=== PATIENT | female | born 1995 | race African-American/Black ===

== ENCOUNTER 2017-12-07 23:40 | Emergency (ER) | payer SELFPAY ==
[~2017-12-07] VITALS: Ht 170.2 cm; Wt 85.0 kg
[2017-12-07 23:49] VITALS: BP 128/74; PULSE 101; RESP 15; TEMP 97.9; O2SAT 98
--- NOTE | 2017-12-08 00:26 | PD ---
HPI Chief Complaint: Sickle Cell Time Seen by Provider: 00:09 Travel History International Travel<30 days: No Contact w/Intl Traveler<30days: No Traveled to known affect area: No History of Present Illness HPI The patient is a 22 year old female who presents to the [facility] emergency department with a history of left leg pain that began earlier this evening. She reports that she took an oxycodone for the pain approximately an hour ago. The patient reports that the pain is related to his sickle cell pain crisis. She reports that she has had a similar pain to this in the past. She reports that the pain is a 10 out of 10 in severity. She reports that her last sickle cell pain crisis was in July 2017. She reports that it usually occurs when she gets cold. The patient reports that she is visiting from [place] and it is currently colder here than in [place]. She denies having any swelling of her legs. She denies having any prior history of DVT or PE. On review of systems otherwise, she denies having any recent fevers, cough, congestion, neck pain, chest pain, shortness of breath, abdominal pain, vomiting , diarrhea, urinary symptoms, or neurologic symptoms. LMP: 2 weeks ago. PFSH Past Medical History Narrative Medical The patient's past medical history is significant for having sickle cell anemia. Sickle Cell Disease: Yes Tetanus Vaccination: Unknown Influenza Vaccination: No ?: Unknown Past Surgical History Narrative Surgical The patient denies any past surgical history. Surgical History: No Previous Surgery Social History Alcohol Use: Yes (OCCASIONALLY) Tobacco Use: No Substance Use: No Allergies-Medications (Allergen,Severity, Reaction): Coded Allergies: No Known Allergies (Unverified , 12/08/17) Reported Meds & Prescriptions Reported Meds & Active Scripts Active Oxycodone-Acetaminophen 5-325 mg Tab 1-2 Tab PO Q6H PRN Narrative Medication Oxycodone as needed, Naprosyn as needed. Review of Systems Except as stated in HPI: all other systems reviewed are Neg General / Constitutional: No: Fever Eyes: No: Visual changes HENT: No: Headaches Cardiovascular: No: Chest Pain or Discomfort, Dyspnea on exertion Respiratory: No: Shortness of Breath Gastrointestinal: No: Nausea, Vomiting, Diarrhea, Abdominal Pain Genitourinary: No: Dysuria Musculoskeletal: Positive: Myalgias, Pain, No: Limited ROM, Edema Skin: No Rash Neurologic: No: Weakness, Focal Abnormalities, Change in Mentation, Slurred Speech, Sensory Disturbance Psychiatric: No: Depression Endocrine: No: Polydipsia Hematologic/Lymphatic: No: Easy Bruising Physical Exam Narrative General: The patient is a well-developed well-nourished female, uncomfortable appearing on my arrival to the room tearful and moaning. Head and Neck exam: Head is normocephalic atraumatic. Eyes: EOMI, pupils are equal round and reactive to light. Nose: Midline septum with pink mucous membranes Mouth: Dentition unremarkable. Moist mucus membranes. Posterior oropharynx is not erythematous. No tonsillar hypertrophy. Uvula midline. Airway patent. Neck: No palpable lymphadenopathy. No nuchal rigidity. No thyromegaly. Cardiovascular: Regular rate and rhythm without murmurs, gallops, or rubs. Lungs: Clear to auscultation bilaterally. No wheezes, rhonchi, or rales. Abdomen: Soft, without tenderness to palpation in all 4 quadrants of the abdomen. No guarding, rebound, or rigidity. Normal bowel sounds are audible. No tenderness on palpation of McBurney's point. Negative Vaz sign. Extremities: No clubbing, cyanosis, or edema. 2+ pulses in all 4 extremities. No calf tenderness on palpation. No joint erythema or edema noted. She has full range of motion. Back: No spinous process tenderness to palpation. No costovertebral angle tenderness to palpation. Neurologic Exam: Grossly nonfocal. Skin Exam: No rash noted. Intact skin that is warm and dry. Data Data Last Documented VS Vital Signs Date Time Temp Pulse Resp B/P (MAP) Pulse Ox O2 Delivery O2 Flow Rate FiO2 12/07/17 23:49 97.9 101 15 128/74 (92) 98 Orders Orders C-Reactive Protein (Crp) (12/08/17 00:11) Complete Blood Count With Diff (12/08/17 00:11) Comprehensive Metabolic Panel (12/08/17 00:11) Retic Count (12/08/17 00:11) Urinalysis - C+S If Indicated (12/08/17 00:11) Ecg Monitoring (12/08/17 00:11) Iv Access Insert/Monitor (12/08/17:11) Oximetry (12/08/17 00:11) Oxygen Administration (12/08/17 00:11) Sodium Chlor 0.9% 1000 Ml Inj (Ns 1000 M (12/08/17 00:30) Ondansetron Inj (Zofran Inj) (12/08/17 00:30) Morphine Inj (Morphine Inj) (12/08/17 00:30) Ed Urine Pregnancytest Poc (12/08/17 00:26) Hydromorphone Pf Inj (Dilaudid Pf Inj) (12/08/17 01:30) Sodium Chlorid 0.9% 500 Ml Inj (Ns 500 M (12/08/17 02:00) Labs Laboratory Tests Test 12/08/17 00:20 White Blood Count 14.9 TH/MM3 Red Blood Count 5.09 MIL/MM3 Hemoglobin 10.7 GM/DL Hematocrit 32.0 % Mean Corpuscular Volume 62.8 FL Mean Corpuscular Hemoglobin 20.9 PG Mean Corpuscular Hemoglobin Concent 33.3 % Red Cell Distribution Width 14.9 % Platelet Count 189 TH/MM3 Mean Platelet Volume 9.2 FL Neutrophils (%) (Auto) 72.0 % Lymphocytes (%) (Auto) 20.6 % Monocytes (%) (Auto) 6.5 % Eosinophils (%) (Auto) 0.6 % Basophils (%) (Auto) 0.3 % Neutrophils # (Auto) 10.7 TH/MM3 Lymphocytes # (Auto) 3.1 TH/MM3 Monocytes # (Auto) 1.0 TH/MM3 Eosinophils # (Auto) 0.1 TH/MM3 Basophils # (Auto) 0.0 TH/MM3 CBC Comment DIFF FINAL Differential Comment Reticulocyte Count 3.7 % Absolute Reticulocyte Count 188.3 MIL/L Blood Urea Nitrogen 13 MG/DL Creatinine 0.63 MG/DL Random Glucose 109 MG/DL Total Protein 7.0 GM/DL Albumin 3.9 GM/DL Calcium Level 8.6 MG/DL Alkaline Phosphatase 66 U/L Aspartate Amino Transf (AST/SGOT) 17 U/L Alanine Aminotransferase (ALT/SGPT) 22 U/L Total Bilirubin 0.5 MG/DL Sodium Level 140 MEQ/L Potassium Level 3.3 MEQ/L Chloride Level 105 MEQ/L Carbon Dioxide Level 28.0 MEQ/L Anion Gap 7 MEQ/L Estimat Glomerular Filtration Rate 120 ML/MIN C-Reactive Protein LESS THAN 0.29 MG/DL MDM Medical Decision Making Medical Screen Exam Complete: Yes Emergency Medical Condition: Yes Medical Record Reviewed: Yes Differential Diagnosis Sickle cell pain crisis, versus septic joint, versus arthritis Narrative Course During the course of the patient's emergency department visit, the patient's history, examination, and differential diagnosis were reviewed with the patient. The patient was placed on a recording studio set up worker with oximetry and frequent blood pressure monitoring. The patient had IV access obtained and blood work sent for analysis. The patient was initially provided 2 L nasal cannula O2, normal saline 1 L IV fluid bolus, morphine for pain, Zofran for nausea. The patient reported continued pain in the patient was given hydromorphone 1 mg IV, additional normal saline IV fluid bolus of 500 mL. The patient on reexamination at that time was resting comfortably and reported improvement in her pain. The patient's laboratory studies were reviewed and remarkable for a white count of 14.9, hemoglobin 10.7, platelets 189 with 72 neutrophils, reticulocyte count 3.7, CMP is remarkable for potassium of 3.3 which will be supplemented orally, glucose 109, C-reactive protein less than 0.29. The patient reports only having 3 oxycodone tablets left. The patient will be discharged home with a short course of Percocet. The patient is resting comfortably and feels better, is alert and in no distress. The patient's results and examination findings were discussed with the patient. The repeat examination is unremarkable and benign. The history, exam, diagnostic testing, and current condition do not suggest any significant pathology to warrant further testing, continued ED treatment, admission, or surgical evaluation at this point. The vital signs have been stable. The patient does not have uncontrollable pain, intractable vomiting, or other significant symptoms. The patient's condition is stable and appropriate for discharge. The patient will pursue further outpatient evaluation with a primary care physician or other designated or consulting physician as indicated in the discharge instructions. The patient expressed understanding and was agreeable with this plan. Diagnosis Primary Impression: Sickle cell pain crisis Referrals: [facility] 3 days Patient Instructions: General Instructions, Sickle Cell Crisis (ED) Med/Other Pt SpecificInfo: Prescription(s) given Scripts Oxycodone-Acetaminophen (Oxycodone-Acetaminophen) 5-325 mg Tab 1-2 TAB PO Q6H Y for PAIN, #12 TAB 0 Refills Prov: Donita Edmonds MD 12/08/17 Disposition: 01 DISCHARGE HOME Condition: Stable Donita Edmonds MD Dec 08, 2017 00:26
[2017-12-08] MEDS ORDERED: ONDANSETRON HCL 4 MG/2 ML VIAL IV ONE (00:30)
[2017-12-08] MEDS ORDERED: MORPHINE SULFATE 8 MG/ML INJ IV PUSH ONE (00:30)
[2017-12-08] MEDS ORDERED: SODIUM CHLOR 0.9% 1000 ML INJ 1,000 ML IV ONE (00:30)
[2017-12-08 00:40] LABS: AUTOMATED NEUTROPHIL # 10.7 TH/MM3 (1.8-7.7); BASOPHIL % 0.3 % (0.0-2.0); EOSINOPHIL # 0.1 TH/MM3 (0-0.4); EOSINOPHIL % 0.6 % (0.0-4.0); HEMOGLOBIN 10.7 GM/DL (11.6-15.3); LYMPH % 20.6 % (9.0-44.0); LYMPHOCYTE # 3.1 TH/MM3 (1.0-4.8); MEAN CELL VOLUME 62.8 FL (80.0-100.0); MEAN CORPUSCULAR HEMOGLOBIN 20.9 PG (27.0-34.0); MEAN CORPUSCULAR HGB CONC 33.3 % (32.0-36.0); MEAN PLATELET VOLUME 9.2 FL (7.0-11.0); MONO % 6.5 % (0.0-8.0); PLATELET COUNT 189 TH/MM3 (150-450); RED BLOOD COUNT 5.09 MIL/MM3 (4.00-5.30); RED CELL DISTRIBUTION WIDTH 14.9 % (11.6-17.2); RETIC # 188.3 MIL/L (20.0-150.0); RETIC % 3.7 % (0.4-3.0); WHITE BLOOD COUNT 14.9 TH/MM3 (4.0-11.0)
[2017-12-08 00:53] LABS: ALBUMIN 3.9 GM/DL (3.4-5.0); AST (GOT) 17 U/L (16-38); BLOOD UREA NITROGEN 13 MG/DL (7-18); CALCIUM 8.6 MG/DL (8.5-10.1); CHLORIDE 105 MEQ/L (98-107); CREATININE 0.63 MG/DL (0.50-1.00); GLOMERULAR FILTRATION RATE 120 ML/MIN (>89); GLUCOSE,RANDOM 109 MG/DL (74-106); SODIUM (NA) 140 MEQ/L (136-145)
[2017-12-08 00:56] LABS: ALKALINE PHOSPHATASE 66 U/L (45-117); ALT (GPT) 22 U/L (9-42); C-REACTIVE PROTEIN LESS THAN 0.29 MG/DL (0.00-0.30); TOTAL BILIRUBIN ADULT 0.5 MG/DL (0.2-1.0)
[2017-12-08] MEDS ORDERED: HYDROmorphone HCL PF 2 MG/ML VIAL IV PUSH ONE (01:30)
[2017-12-08] MEDS ORDERED: SODIUM CHLORID 0.9% 500 ML INJ 500 ML IV ONE (02:00)
[2017-12-08] MEDS ORDERED: OXYC1TAB63 PO (02:42)
[2017-12-08] MEDS ORDERED: POTASSIUM CHLORIDE 20 MEQ CONTROLLED RELEASE TAB PO ONE (02:45)
== END 2017-12-08 06:38 | disposition home or self-care (01) ==
LOC: EDBD 23:40 → NEPC 23:40
DX: D57.00 Hb-SS disease with crisis, unspecified (principal)
CPT/HCPCS: 80053; 85025; 85044; 86140; 96361; 96374; 96375; 99284; J1170; J2270; J2405; J7030; J7040